=== PATIENT | male | born 1990 | race Caucasian/White ===

== ENCOUNTER 2020-09-09 11:17 | Outpatient (CLI) | payer OTHER | END 2020-09-09 11:18 | disposition home or self-care (01) | LOC: COV 11:17 | PROVIDERS: ATTEND Family Medicine | DX: R05 Cough (principal); Z20.828 Contact with and (suspected) exposure to other viral communicable diseases; R09.81 Nasal congestion; J02.9 Acute pharyngitis, unspecified; M79.10 Myalgia, unspecified site; R43.8 Other disturbances of smell and taste ==

== ENCOUNTER 2020-09-23 10:15 | Outpatient (CLI) | payer OTHER | END 2020-09-23 23:59 | disposition home or self-care (01) | LOC: LAB.R 10:15 | PROVIDERS: ATTEND Emergency Medicine | DX: L72.3 Sebaceous cyst (principal) | CPT/HCPCS: 87070; 87205 ==

== ENCOUNTER 2024-06-10 08:00 | Outpatient (CLI) | payer OTHER | END 2024-06-10 23:59 | disposition home or self-care (01) | LOC: LAB.N 08:00 | PROVIDERS: ATTEND Physician Assistant Medical | DX: R21 Rash and other nonspecific skin eruption (principal) | CPT/HCPCS: 87070; 87181; 87205 ==

== ENCOUNTER 2024-07-11 13:15 | Outpatient (CLI) | payer BC | END 2024-07-11 13:30 | disposition home or self-care (01) | LOC: LAB.N 13:15 | PROVIDERS: ATTEND Physician Assistant Medical | DX: R21 Rash and other nonspecific skin eruption (principal); L53.9 Erythematous condition, unspecified | CPT/HCPCS: 87070; 87205 ==